=== PATIENT | male | born 1980 | race Caucasian/White ===

== ENCOUNTER 2018-11-11 09:46 | Inpatient (IN) | payer OTHER ==
[2018-11-05 14:00] VITALS: BMI 38.5
--- NOTE | 2018-11-11 11:20 | HP ---
Admitting History and Physical - Admission Chief Complaint: Morbid obesity History of Present Illness: Morbid obesity History Source: Patient Limitations to Obtaining History: No Limitations - Past Medical History Endocrine: Yes: Diabetes Mellitus - Past Surgical History Past Surgical History: Yes: Hernia Repair (right inguinal hernia as an ) - Smoking History Smoking history: Never smoked Aproximately how many cigarettes per day: 0 - Alcohol/Substance Use Hx Alcohol Use: No Home Medications - Allergies Allergies/Adverse Reactions: Allergies Allergy/AdvReac Type Severity Reaction Status Date / Time No Known Allergies Allergy Verified 01/01/15 16:39 - Home Medications Home Medications: Ambulatory Orders Cholecalciferol (Vitamin D3) [Vitamin D3] 10,000 unit PO WEEKLY 11/05/18 metFORMIN HCL [Metformin HCl] 500 mg PO DAILY 11/05/18 Famotidine [Pepcid] 20 mg PO BID #60 tablet 11/11/18 Oxycodone HCl/Acetaminophen [Percocet 5-325 mg Tablet] 1 - 2 tab PO Q6H #28 tab MDD 4 11/11/18 Family Disease History - Family Disease History Family History: Denies Review of Systems - Review of Systems Constitutional: denies: Chills, Fever HENT: reports: No Symptoms Neck: reports: No Symptoms Cardiovascular: reports: No Symptoms Respiratory: reports: No Symptoms Gastrointestinal: reports: No Symptoms Neurological: reports: No Symptoms Pain Intensity: 0 Physical Examination Vital Signs: Vital Signs Temperature 98.6 F 11/11/18 10:43 Pulse Rate 84 11/11/18 10:43 Respiratory Rate 20 11/11/18 10:43 Blood Pressure 125/92 11/11/18 10:43 O2 Sat by Pulse Oximetry (%) Constitutional: Yes: Calm HENT: Yes: WNL Neck: Yes: WNL Cardiovascular: Yes: WNL Respiratory: Yes: WNL Gastrointestinal: Yes: Soft, Abdomen, Obese. No: Tenderness Neurological: Yes: Alert, Oriented Problem List - Problems (1) BMI 38.0-38.9,adult Code(s): Z68.38 - BODY MASS INDEX (BMI) 38.0-38.9, ADULT (2) Diabetes mellitus type 2 in obese Code(s): E11.69 - TYPE 2 DIABETES MELLITUS WITH OTHER SPECIFIED COMPLICATION; E66.9 - OBESITY, UNSPECIFIED (3) Morbid obesity due to excess calories Code(s): E66.01 - MORBID (SEVERE) OBESITY DUE TO EXCESS CALORIES Assessment/Plan Laparoscopic possible open vertical sleeve gastrectomy possible liver biopsy
[2018-11-11] MEDS ORDERED: BUPIVACAINE HCL/PF 2.5 MG/ML - 30 ML VIAL IJ ONE (11:30)
[2018-11-11] MEDS ORDERED: LIDOCAINE HCL/PF 2% SDV 5ML VIAL ONE (11:34)
[2018-11-11] MEDS ORDERED: PROPOFOL 20 ML ONE (11:35)
[2018-11-11] MEDS ORDERED: MIDAZOLAM HCL 2 MG/2 ML SINGLE DOSE VIAL ONE ×2 (11:35→13:51)
[2018-11-11] MEDS ORDERED: SUCCINYLCHOLINE CHLORIDE 200 MG/10 ML VIAL ONE (11:35)
[2018-11-11] MEDS ORDERED: ROCURONIUM BROMIDE 50 MG/5 ML VIAL ONE (11:35)
[2018-11-11] MEDS ORDERED: ceFAZolin SODIUM 1 GM VIAL ONE (12:13)
[2018-11-11] MEDS ORDERED: ONDANSETRON 4 MG/2 ML VIAL ONE ×2 (12:35→13:31)
[2018-11-11] MEDS ORDERED: DEXAMETHASONE SOD PHOSPHATE 4 MG/1 ML VIAL ONE (12:35)
[2018-11-11] MEDS ORDERED: HYDROmorphone HCL/PF 1 MG/ML AMP ONE (13:30)
[2018-11-11] MEDS ORDERED: NEOSTIGMINE METHYLSULFATE 0.5 MG/ML - 10 ML MDV ONE (13:42)
[2018-11-11] MEDS ORDERED: oxyCODONE HCL 5 MG TABLET PO PRN (13:53)
[2018-11-11] MEDS ORDERED: HYDROmorphone HCL CARPU-JECT 2 MG/1 ML DISP.SYRIN IVPB PRN (13:57)
[2018-11-11] MEDS ORDERED: SODIUM CHLORIDE 1,000 ML IV SCH ×2 (14:00)
--- NOTE | 2018-11-11 14:01 | OP ---
Operative Note - Note: Operative Date: 11/11/18 Pre-Operative Diagnosis: Morbid obesity. BMI 38.5. Diabetes Mellitus type II Operation: Laparoscopic vertical sleeve gastrectomy. Laparoscopic wedge liver biopsy Post-Operative Diagnosis: Other (Same as well as hepatomegaly) Surgeon: Kayode Diaz Photoengraving Etcher Apprentice: Miguel Angel Hopper Specimens Removed: Greater curvature of the stomach. Liver biopsy Estimated Blood Loss (mls): 30 Drains & Tubes with Location: 36 fr Bougie Operative Report Dictated: Yes
[2018-11-11] MEDS ORDERED: ONDANSETRON 4 MG/2 ML VIAL IVPUSH PRN (14:13)
[2018-11-11] MEDS ORDERED: LACTATED RINGERS SOLUTION 1,000 ML IV SCH (14:15)
[2018-11-11 14:34] LABS: HEMATOCRIT 44.9 % (35.4-49); HEMOGLOBIN 14.6 GM/dl (11.7-16.9); MCH 30.2 pg (25.7-33.7); MCHC 32.4 g/dl (32.0-35.9); MEAN CELL VOLUME 93.3 fl (80-96); MEAN PLT VOLUME 9.8 fl (7.5-11.1); PLATELET COUNT 331 K/MM3 (134-434); RBC 4.82 M/mm3 (4.00-5.60); WHITE BLOOD COUNT 26.3 K/mm3 (4.0-10.8)
[2018-11-11] MEDS ORDERED: METOCLOPRAMIDE HCL INJECTION 10 MG/2 ML VIAL IVPUSH ONE (14:40)
[2018-11-11] MEDS ORDERED: ACETAMINOPHEN 1000 MG/100 ML VIAL (NON FORMULARY) IVPB ONE (14:46)
[2018-11-11 14:54] LABS: ALBUMIN 3.9 g/dl (3.4-5.0); ALK PHOS 78 U/L (45-117); ANION GAP 11 MMOL/L (8-16); BILIRUBIN,TOTAL 0.8 mg/dl (0.2-1); BLOOD UREA NITROGEN 11 mg/dl (7-18); CALCIUM 8.6 mg/dl (8.5-10); CHLORIDE 101 mmol/L (98-107); CO2 24 mmol/L (21-32); CREATININE 0.9 mg/dl (0.55-1.3); GLUCOSE,RANDOM 277 mg/dl (74-106); POTASSIUM 3.9 mmol/L (3.5-5.1); SGOT/AST 54 U/L (15-37); SGPT/ALT 54 U/L (13-61); SODIUM 136 mmol/L (136-145); TOT PROT 6.6 g/dl (6.4-8.2)
[2018-11-11] MEDS: ACETAMINOPHEN 1000 MG/100 ML VIAL (NON FORMULARY) IVPB SCH ×2 (15:08→21:21)
[2018-11-11] MEDS: ONDANSETRON 4 MG/2 ML VIAL IVPUSH SCH ×3 (15:09→21:22)
[2018-11-11] MEDS: METOCLOPRAMIDE HCL INJECTION 10 MG/2 ML VIAL IVPUSH SCH ×2 (15:09→21:23)
[2018-11-11] MEDS ORDERED: INSULIN SLIDING SCALE (NOVOLOG) 1 VIAL SQ SCH (16:30)
[2018-11-11] MEDS: HYDROmorphone HCL CARPU-JECT 1 MG/1 ML DISP.SYRIN IVPB PRN ×2 (16:42→20:00)
[2018-11-11] MEDS: FAMOTIDINE 20 MG/50 ML IVPB 20 MG/50 ML MG IVPB SCH (21:22)
[2018-11-11] MEDS: ENOXAPARIN NA (PORCINE) 40 MG/0.4 ML DISP.SYRIN SQ SCH (21:23)
[2018-11-12] MEDS: HYDROmorphone HCL CARPU-JECT 1 MG/1 ML DISP.SYRIN IVPB PRN (01:49)
[2018-11-12] MEDS: ONDANSETRON 4 MG/2 ML VIAL IVPUSH SCH ×3 (01:50→10:30)
[2018-11-12] MEDS: METOCLOPRAMIDE HCL INJECTION 10 MG/2 ML VIAL IVPUSH SCH ×2 (03:29→09:50)
[2018-11-12] MEDS: ACETAMINOPHEN 1000 MG/100 ML VIAL (NON FORMULARY) IVPB SCH ×2 (04:00→08:55)
[2018-11-12 06:24] VITALS: BP 154/88; PULSE 71; TEMP 99.7
[2018-11-12 08:44] LABS: ALBUMIN 3.8 g/dl (3.4-5.0); ALK PHOS 78 U/L (45-117); ANION GAP 10 MMOL/L (8-16); BILIRUBIN,TOTAL 0.7 mg/dl (0.2-1); BLOOD UREA NITROGEN 7 mg/dl (7-18); CALCIUM 8.9 mg/dl (8.5-10); CHLORIDE 100 mmol/L (98-107); CO2 24 mmol/L (21-32); CREATININE 0.8 mg/dl (0.55-1.3); GLUCOSE,RANDOM 157 mg/dl (74-106); SGOT/AST 39 U/L (15-37); SGPT/ALT 52 U/L (13-61); SODIUM 134 mmol/L (136-145)
[2018-11-12 08:55] LABS: HEMATOCRIT 43.3 % (35.4-49); HEMOGLOBIN 14.6 GM/dl (11.7-16.9); MCH 31.1 pg (25.7-33.7); MCHC 33.6 g/dl (32.0-35.9); MEAN CELL VOLUME 92.6 fl (80-96); PLATELET COUNT 305 K/MM3 (134-434); RBC 4.68 M/mm3 (4.00-5.60); RDW 12.8 % (11.9-15.9); WHITE BLOOD COUNT 14.6 K/mm3 (4.0-10.8)
[2018-11-12] MEDS: FAMOTIDINE 20 MG/50 ML IVPB 20 MG/50 ML MG IVPB SCH (09:25)
[2018-11-12] MEDS: ENOXAPARIN NA (PORCINE) 40 MG/0.4 ML DISP.SYRIN SQ SCH (10:05)
[2018-11-12] MEDS ORDERED: oxyCODONE HCL 5 MG TABLET PO PRN (15:11)
[2018-11-12] MEDS ORDERED: SODIUM CHLORIDE 1,000 ML IV SCH (15:15)
--- NOTE | 2018-11-12 15:59 | SPEC ---
DATE OF OPERATION: 11/11/2018 SURGEON: Kayode Diaz M.D. HOUSE NURSE: Miguel Angel Hopper M.D. PREOPERATIVE DIAGNOSES: 1. Morbid obesity. 2. Body mass index 38.5. 3. Diabetes mellitus type 2. POSTOPERATIVE DIAGNOSES: 1. Morbid obesity. 2. Body mass index 38.5. 3. Diabetes mellitus type 2. 4. Hepatomegaly. PROCEDURE PERFORMED: 1. Laparoscopic vertical sleeve gastrectomy. 2. Laparoscopic wedge liver biopsy. SPECIMENS: 1. Greater curvature of the stomach. 2. Liver biopsy. ESTIMATED BLOOD LOSS: 30 mL. DRAINS: None. ANESTHESIA: GET. BOUGIE SIZE: 36 Tamazight. REASON FOR PROCEDURE: This 38-year-old gentleman presented to the office for weight loss options. After describing the different options, he decided to proceed with laparoscopic, possible open vertical sleeve gastrectomy with wedge liver biopsy. RISKS AND BENEFITS: After describing the different options for weight loss management, the patient decided to proceed with a laparoscopic, possible open vertical sleeve gastrectomy. The patient was seen by the respective subspecialties and cleared for surgery. The risks and benefits of the procedure were explained. These included bleeding, infection, hernia, [place], DVT, PE, injury to surrounding structures including the liver, colon, bowel, spleen, esophagus, vessel injury, nerve injury, weight regain, gastric leak, staple line leak, sleeve leak, obstruction, vitamin deficiency, hair loss and as some of the possible complications. The patient understood and signed informed consent. DESCRIPTION OF PROCEDURE: The patient was placed supine on the operating room table. The patient underwent general endotracheal intubation. A Basurto catheter was inserted. The arms were brought out at 90 degrees and secured. A footboard was placed and the legs were secured laterally with padding. The abdomen was prepped and draped in the usual sterile fashion. A timeout was performed. An incision was made in the left upper quadrant and a Veress needle inserted. Pneumoperitoneum was established. Subsequently, the Veress needle was removed and a 12-mm trocar was placed. The laparoscopic camera was then inserted and inspection of the abdominal cavity was performed. An incision was then made in the supraumbilical area and a 15-mm trocar was placed under direct visualization. A 5-mm trocar was then placed in the right upper quadrant and a 5-mm trocar was placed below the left subcostal margin. A stab wound was made in the subxiphoid area and a Maricruz clamp inserted and removed to dilate the tract. A Kritsina liver retractor was inserted. The post was secured at the bedside by the nursing staff. The patient was placed in steep reverse Trendelenburg position and the Kristina liver retractor was used to secure the liver towards the anterior abdominal wall. The pylorus was identified and 6 cm proximal to it, the lesser sac was entered using the LigaSure device. All lateral attachments to the greater curvature of the stomach, including the short gastric vessels, were ligated using the LigaSure device toward the gastrosplenic and gastrophrenic ligaments. Once this was done in its entirety, it was confirmed that all tubes within the nasal or oropharyngeal cavity, including a temperature probe, was removed by Anesthesia. The bougie was then inserted by Anesthesia. Transection of the stomach was then begun staying adjacent to the bougie but away from the angularis. Transection of the stomach was performed near the portion of the stomach where the lesser sac was entered. Two laparoscopic Endo-AFUA black checo were used at this location. Laparoscopic Endo AFUA purple staple loads were then used for the remainder of the transection until the greater curvature of the stomach was fully transected. This was done staying close to the bougie. Care was taken to stay away from the angle of His cephalad. The staple line was then inspected. Hemostasis was identified. A leak test was then performed. It was clamped distally to the staple line. Irrigation solution was placed in the left upper quadrant and air was insufflated by Anesthesia into the sleeve. No leaks were identified. No obstruction was identified. This was done through the entirety of the staple line. At this point, the irrigation solution was suctioned and again , hemostasis was noted. A wedge liver biopsy was then performed. The left lobe of the liver was identified and a portion of the edge was grasped. Using electrocautery, a wedge of the liver was excised. This was removed and sent off the field as specimen. Hemostasis at the site of the wedge liver biopsy was attained using electrocautery. The 15-mm supraumbilical trocar was then removed and the greater curvature specimen removed from the site using a sponge stick moya. The specimen was inspected and a Veress needle inserted. The specimen insufflated adequately and no leak was identified. The staple line was noted to be intact. A Jai-Estelle device was then used to temporarily close the fascia with a 0 Vicryl suture at the site. The 15-mm trocar was then reinserted and the 12-mm trocar in the left upper quadrant was removed. The fascia at this site was then closed using the Jai-Estelle device with a 0 Vicryl suture. Again, hemostasis was noted. The Kristina liver retractor was then removed under direct visualization. Pneumoperitoneum was desufflated and the fascial sutures were secured. Hemostasis was noted at all incision sites and Marcaine was injected at all incision sites. All incision sites were closed using 4-0 Biosyn. Sterile dressings were applied. The patient tolerated the procedure well and was transferred to the recovery room in stable condition with the Basurto catheter intact. The patient was transferred to telemetry for further monitoring. Kimo TIMMONS/[id number] MTDMitchell
--- NOTE | 2018-11-12 17:37 | PN ---
Progress Note (short form) - Note Progress Note: POD 1 Pain controlled No nausea Vital Signs Period Temp Pulse Resp BP Sys/George Pulse Ox Last 24 Hr 98.6 F-100.4 F 71-85 18-19 154-184/81-88 95-98 Abd soft CBC,CMP WBC 14.6 K/mm3 (4.0-10.8) H 11/12/18 07:00 RBC 4.68 M/mm3 (4.00-5.60) 11/12/18 07:00 Hgb 14.6 GM/dl (11.7-16.9) 11/12/18 07:00 Hct 43.3 % (35.4-49) 11/12/18 07:00 MCV 92.6 fl (80-96) 11/12/18 07:00 MCH 31.1 pg (25.7-33.7) 11/12/18 07:00 MCHC 33.6 g/dl (32.0-35.9) 11/12/18 07:00 RDW 12.8 % (11.9-15.9) 11/12/18 07:00 Plt Count 305 K/MM3 (134-434) 11/12/18 07:00 MPV 10.0 fl (7.5-11.1) 11/12/18 07:00 Sodium 134 mmol/L (136-145) L 11/12/18 07:00 Potassium 4.0 mmol/L (3.5-5.1) 11/12/18 07:00 Chloride 100 mmol/L (98-107) 11/12/18 07:00 Carbon Dioxide 24 mmol/L (21-32) 11/12/18 07:00 Anion Gap 10 MMOL/L (8-16) 11/12/18 07:00 BUN 7 mg/dl (7-18) 11/12/18 07:00 Creatinine 0.8 mg/dl (0.55-1.3) 11/12/18 07:00 Creat Clearance w eGFR > 60 (>60) 11/12/18 07:00 POC Glucometer 146 UNITS (80-120) 11/12/18 05:33 Random Glucose 157 mg/dl (74-106) H 11/12/18 07:00 Calcium 8.9 mg/dl (8.5-10) 11/12/18 07:00 Total Bilirubin 0.7 mg/dl (0.2-1) 11/12/18 07:00 AST 39 U/L (15-37) H 11/12/18 07:00 ALT 52 U/L (13-61) 11/12/18 07:00 Alkaline Phosphatase 78 U/L (45-117) 11/12/18 07:00 Total Protein 7.0 g/dl (6.4-8.2) 11/12/18 07:00 Albumin 3.8 g/dl (3.4-5.0) 11/12/18 07:00 UGI: no leak/obstruction Clears Discharged home Problem List - Problems (1) BMI 38.0-38.9,adult Code(s): Z68.38 - BODY MASS INDEX (BMI) 38.0-38.9, ADULT (2) Diabetes mellitus type 2 in obese Code(s): E11.69 - TYPE 2 DIABETES MELLITUS WITH OTHER SPECIFIED COMPLICATION; E66.9 - OBESITY, UNSPECIFIED (3) Morbid obesity due to excess calories Code(s): E66.01 - MORBID (SEVERE) OBESITY DUE TO EXCESS CALORIES
--- NOTE | 2018-11-13 16:20 | PATH ---
Surgical Pathology Report Patient Name: SY WASHINGTON Med. Rec. #: [id number] /Age/Gender: 1980 (Age: 38) / M Account: [id number] Location: [facility] Taken: 11/11/2018 Received: 11/11/2018 Reported: 11/13/2018 Physicians: Kayode Diaz M.D. Specimen(s) Received A: PARTIAL STOMACH B: LIVER BIOPSY Clinical History Morbid obesity Final Diagnosis A. PARTIAL STOMACH, LAPAROSCOPIC VERTICAL SLEEVE GASTRECTOMY: SEGMENT OF STOMACH SHOWING CHRONIC GASTRITIS. IMMUNOSTAINING IS NEGATIVE FOR H. PYLORI ORGANISMS. NEGATIVE FOR INTESTINAL METAPLASIA. B. LIVER, BIOPSY: LIVER TISSUE WITH STEATOSIS (50%), diffuse. NO HISTOLOGIC EVIDENCE OF HEPATITIS. NO INCREASE IN FIBROSIS (TRICHROME STAIN) OR IRON (IRON STAIN) DEPOSITION. Electronically Signed Nikolas Parker M.D. Gross Description A. Received in formalin, labeled "partial stomach," is a 104 gram, 19.0 x 3.0 x 2.8 cm. portion of stomach with a stapled margin of resection. The serosa is pineda-mendoza with minimal attached fat. The mucosa is pineda-pink with normal folds. No mucosal masses are identified. Round Boner sections are submitted in one cassette. B. Received in formalin labeled "liver biopsy," is a 2.0 x 0.9 x 0.6 cm pineda portion of soft tissue, consistent with a liver biopsy. The specimen is bisected and entirely submitted in one cassette. 11/12/2018 saudi11/12/2018
== END 2018-11-12 16:00 | disposition home or self-care (01) | DRG 403 ==
LOC: FM/S 09:46
PROVIDERS: ADMIT Surgery; ATTEND Surgery
PROC: 0DB64Z3 Excision of Stomach, Percutaneous Endoscopic Approach, Vertical (ICD-10-PCS; principal; 2018-11-11 12:28)
PROC: 0FB24ZX Excision of Left Lobe Liver, Percutaneous Endoscopic Approach, Diagnostic (ICD-10-PCS; 2018-11-11 12:28)
DX: E66.01 Morbid (severe) obesity due to excess calories (principal); Z68.38 Body mass index [BMI] 38.0-38.9, adult; E11.9 Type 2 diabetes mellitus without complications; R16.0 Hepatomegaly, not elsewhere classified
CPT/HCPCS: 36415; 74241-TC-FY; 80053; 82962; 85027; 86803; 87389; 88305-TC; 88313-TC; 88342-TC; 94760; J0131